=== PATIENT | female | born 1960 | race Caucasian/White ===

== ENCOUNTER 2020-05-23 12:22 | Outpatient (REF) | payer OTHER, SELFPAY ==
[2020-05-23 12:29] LABS: MANUAL DIFF FLAG NO
[2020-05-23 13:02] LABS: Basophils Percent Auto 0.6 % (0-2); Eosinophils Absolute Auto 0.1 X10*3/uL (0.0-0.4); Eosinophils Percent Auto 2.1 % (0-4); Hemoglobin 12.9 g/dl (12.0-16.0); Imm Gran Abs Auto 0.01 X10*3/uL (0.00-0.03); Imm Gran Pct Auto 0.2 % (0.0-0.4); Lymphocytes Absolute Auto 2.3 X10*3/uL (1.2-4.9); Lymphocytes Percent Auto 46.5 % (20-40); Mean Corpuscular HGB Conc 33.9 g/dl (31.0-35.0); Mean Corpuscular Hemoglobin 32.2 pg (27.0-33.0); Mean Corpuscular Volume 94.8 fL (80-98); Mean Platelet Volume 11.6 fL (9.4-12.3); Monocytes Absolute Auto 0.4 X10*3/uL (0.1-1.2); Monocytes Percent Auto 7.8 % (2-11); Neutrophils Absolute Auto 2.1 X10*3/uL (2.0-8.3); Neutrophils Percent Auto 42.8 % (45-73); Platelet Count 230 X10*3/uL (160-400); Red Blood Count 4.01 X10*6/uL (4.20-5.50); White Blood Count 4.9 X10*3/uL (4.8-10.8)
[2020-05-23 13:03] LABS: Glucose Urine UA NEG (NEG); Leukocyte Esterase Urine NEG (NEG); Nitrite Urine NEG (NEG); PH 5.5 (5.0-8.0); Specific Gravity - Urine <= 1.005 (1.005-1.025); Urine Blood NEG (NEG); Urine Ketones NEG (NEG); Urine Protein NEG (NEG-TRACE)
[2020-05-23 13:10] LABS: Appearance Urine CLEAR; Color Urine STRAW
[2020-05-23 13:33] LABS: Alanine Aminotransferase 16 U/L (0-31); Albumin Level 4.4 g/dL (3.5-5.0); Alkaline Phosphatase 43 U/L (39-117); Anion Gap 14 (12-20); Aspartate Amino Transferase 20 U/L (5-31); Bilirubin Total 0.5 mg/dL (0.0-1.0); Blood Urea Nitrogen 16 mg/dL (9-16); Calcium 8.9 mg/dL (8.4-10.2); Carbon Dioxide 27 mmol/L (22-29); Chloride 103 mmol/L (96-108); Cholesterol 227 mg/dL; Estimated Glomerular Filt Rate > 60; Glucose Fasting 84 mg/dL (60-99); HDL Cholesterol 67 mg/dL; LDL Cholesterol Calculated 147 mg/dl; Sodium 140 mmol/L (135-145); Total Protein 6.6 g/dL (6.5-8.0); Triglycerides 65 mg/dL
[2020-05-23 13:54] LABS: Vitamin D 25-OH Total 32.8 ng/mL (>30)
== END 2020-05-23 12:23 | disposition home or self-care (01) ==
LOC: HO.LNP 12:22
PROVIDERS: PCP Internal Medicine; Visit Provider Internal Medicine
DX: Z00.00 Encounter for general adult medical examination without abnormal findings (principal); D72.820 Lymphocytosis (symptomatic); E55.9 Vitamin D deficiency, unspecified
CPT/HCPCS: 80053; 80061; 81003; 82306; 85025

== ENCOUNTER 2020-06-16 17:21 | Emergency (ER) | payer OTHER, SELFPAY ==
--- NOTE | ~2020-06-16 | CT_ITS ---
EXAMINATION: CT HEAD WITHOUT CONTRAST CT CERVICAL SPINE WITHOUT CONTRAST CLINICAL INFORMATION: Dizziness and syncope COMPARISON: None TECHNIQUE: CT of the head and cervical spine were performed without intravenous contrast. Multiplanar reformats were rendered and reviewed. This CT examination was performed using dose optimization techniques as appropriate, variously including the following: *Automated exposure control *Adjustment of mA and/or kV according to patient size (this includes techniques or standardized protocols for targeted exams where dose is matched to indication/reason for exam; i.e. extremities or head) *Use of iterative reconstruction technique DLP: 916 mGy-cm. FINDINGS: CT head: No intracranial hemorrhage, large infarction, or mass lesion is seen. No extra-axial collection is appreciated. The ventricles are normal in size and configuration without evidence of hydrocephalus. The visualized paranasal sinuses and mastoid air cells are clear. No skull fracture. Soft tissues are normal. CT cervical spine: There is mild reversal of the normal lordosis of the cervical spine The craniocervical junction is normal. The vertebral body heights are maintained. No cervical spine fracture is seen. There is moderate intervertebral disc space narrowing at C4-C5 and C5-C6 with endplate osteophyte formation. There are subchondral cysts in the C4 vertebral body. The paraspinal soft tissues are within normal limits. The partially imaged lung apices are clear. CT/CT cervical spine wo con IMPRESSION: CT head: No acute intracranial finding. CT cervical spine: No cervical spine fracture or traumatic malalignment identified. Degenerative changes at C4-C5 and C5-C6.
--- NOTE | ~2020-06-16 | XR_ITS ---
EXAMINATION: XR CHEST CLINICAL INFORMATION: Collapse COMPARISON: None TECHNIQUE: Frontal view of the chest was obtained. FINDINGS: No significant abnormality is noted involving the heart, lungs, mediastinum, bony thorax or soft tissues. XR/XR chest 1V IMPRESSION: Unremarkable examination.
--- NOTE | ~2020-06-16 | CT_ITS ---
EXAMINATION: CT HEAD WITHOUT CONTRAST CT CERVICAL SPINE WITHOUT CONTRAST CLINICAL INFORMATION: Dizziness and syncope COMPARISON: None TECHNIQUE: CT of the head and cervical spine were performed without intravenous contrast. Multiplanar reformats were rendered and reviewed. This CT examination was performed using dose optimization techniques as appropriate, variously including the following: *Automated exposure control *Adjustment of mA and/or kV according to patient size (this includes techniques or standardized protocols for targeted exams where dose is matched to indication/reason for exam; i.e. extremities or head) *Use of iterative reconstruction technique DLP: 916 mGy-cm. FINDINGS: CT head: No intracranial hemorrhage, large infarction, or mass lesion is seen. No extra-axial collection is appreciated. The ventricles are normal in size and configuration without evidence of hydrocephalus. The visualized paranasal sinuses and mastoid air cells are clear. No skull fracture. Soft tissues are normal. CT cervical spine: There is mild reversal of the normal lordosis of the cervical spine The craniocervical junction is normal. The vertebral body heights are maintained. No cervical spine fracture is seen. There is moderate intervertebral disc space narrowing at C4-C5 and C5-C6 with endplate osteophyte formation. There are subchondral cysts in the C4 vertebral body. The paraspinal soft tissues are within normal limits. The partially imaged lung apices are clear. CT/CT head/brain wo con IMPRESSION: CT head: No acute intracranial finding. CT cervical spine: No cervical spine fracture or traumatic malalignment identified. Degenerative changes at C4-C5 and C5-C6.
--- NOTE | 2020-06-16 17:40 | ECG_ITS ---
Test Reason : SYNCOPE Blood Pressure : / mmHG Vent. Rate : 080 BPM Atrial Rate : 080 BPM P-R Int : 150 ms QRS Dur : 086 ms QT Int : 412 ms P-R-T Axes : 061 058 055 degrees QTc Int : 475 ms Sinus rhythm with occasional Premature ventricular complexes Otherwise normal ECG No previous ECGs available Referred By: Trinity Ramon Electronically Signed By:SEJAL AMAYA MD
[2020-06-16 17:42] VITALS: BP 162/79; PULSE 90; RESP 18; TEMP 36.6; O2SAT 99; BMI 22.1
--- NOTE | 2020-06-16 17:42 | ED_ITS ---
HPI - Syncope General Chief Complaint: General Medical Stated Complaint: ?SYNCOPE,ETOH,CONSUMED EDIBLE CANNABIS Time Seen by Provider: 06/16/20 17:37 Source: patient and EMS Mode of arrival: EMS Limitations: no limitations History of Present Illness HPI narrative: 60-year-old female with past medical history of asthma presents via EMS for a syncope versus collapse, stated that she had several alcoholic beverages and marijuana edibles. Patient stated that this is the 2nd time today that she fell, fell while trying carrying wood, and then had a collapse episode approximately 1 hour after eating marijuana edibles. Setting collapse was witnessed by family she was assisted to the ground. Patient states that she drinks often and occasionally uses edibles but has never felt this way before. She describes her symptoms as almost stroke-like, felt like she lost strength to her lower extremities. She does not describe any chest pain or pressure, palpitations, shortness of breath, shortness breath on exertion, headaches, dizziness, lightheadedness, nausea, vomiting, diarrhea, constipation, dysuria, hematuria, fevers, chills, or edema. Related Data Allergies Allergy/AdvReac Type Severity Reaction Status Date / Time No Known Allergies Allergy Verified 06/16/20 17:40 Review of Systems Review of Systems: Constitutional: No Fever, No Chills ENT/Mouth: No sore throat, No Rhinorrhea Eyes: No Eye Pain, No Swelling, No Redness Cardiovascular: No Chest Pain, No SOB Respiratory: No Cough, No Sputum Gastrointestinal: No Nausea, No Vomiting, No Diarrhea, No abdominal Pain Genitourinary: No Dysuria, No Hematuria Musculoskeletal: No joint pain, No Myalgias, No Joint Swelling Skin: No Skin Lesions, No rash Neuro: Positive Weakness, No Numbness, positive Loss of Consciousness, No Dizziness, No Headache Psych: Positive ETOH and marijuana edible use, No Anxiety, No Depression, No SI/HI/AH/VH Heme/Lymph: No Bruising, No Bleeding,No Lymphadenopathy Endocrine: No Polyuria, No Polydipsia Yes all other systems are reviewed and are negative [facility] Past Medical History Attestation statement: The following information was validated with the patient. Source: old records reviewed Medical History Asthma Social History Social History Smoking Status: Current every day smoker Substance Use Type: Marijuana Advance Directives: No Advance Directives Information Provided: Yes Physical Exam Vital Signs: Vital Signs: Last Vital Signs Temp 97.8 F 06/16/20 17:42 Pulse 90 06/16/20 17:42 Resp 16 06/16/20 20:00 BP 162/79 H 06/16/20 17:42 Pulse Ox 99 06/16/20 17:42 Body Mass Index 22.1 Appearance: Alert. Oriented X3. No acute distress. Head: Normal external exam. Normocephalic. Atraumatic. No Chavez signs noted. No raccoon eyes noted Eyes: PERRLA. EOMI. Conjunctiva and sclera normal. Eyelids normal. ENT: TM's Normal. Pharynx normal. Uvula midline. Moist mucous membranes. No trismus noted. No drooling noted. No muffled voice noted. Neck: Normal inspection. Neck supple. No adenopathy. Thyroid Normal. No meningeal signs. No neck mass noted. CVS: Normal heart rate and rhythm. Heart sound normal. No murmurs noted. Pulses equal to all extremities. Respiratory: No respiratory distress. Painless inspiration. Breath sounds normal. No wheezes/rales/rhonchi noted. Chest nontender. No accessory muscle usage noted or decreased air movement noted. Abdomen: Soft and nontender. Bowel sounds normal in all 4 quadrants. No distention noted. No organomegaly noted. No visible injury noted. Back: No CVA tenderness. Full range of motion noted. Skin: Skin warm and dry. Normal skin color. Normal skin turgor. No rashes/lesions/lacerations noted. Extremities: No lower extremity edema. Extremities exhibit normal range of motion. Extremities nontender. Neuro: cranial nerves 2-12 intact, no focal neural deficits, strength 5/5 to all extremities, No motor deficit. No sensory deficit. Reflexes normal. NIH Stroke Scale Internal: Initial- Upon Arrival Time: 17:30 Level of Consciousness: Alert Level of Consciousness Questions: Answers both questions correctly Level of Consciousness Commands: Performs both tasks correctly Best Gaze: Normal Visual: No visual loss Facial Palsy: Normal Motor Arm (Right): No drift Motor Arm (Left): No drift Motor Leg (Right): No drift Motor Leg (Left): No drift Limb Ataxia: Absent Sensory: Normal Best Language: No aphasia Dysarthia: Normal Extinction and Inattention: No abnormality Score: 0 Course Course Course Narrative: 60-year-old female with past medical history of asthma presents via EMS for a syncope versus collapse, stated that she had several alcoholic beverages and marijuana edibles. Even though patient has had marijuana edibles and multiple alcoholic beverages, Based on patient's multiple falls today and inability to accurately recall events, we will rule out CVA, order CT scan of head, cervical spine, rule out ACS with EKG, troponin, will order the , urinalysis, CBC, Chem 7, and ethanol. At 6:09 p.m. chest x-ray is negative for acute findings requiring emergent intervention. At 6:[address] scan head and cervical spine negative for acute findings r equiring emergent intervention. Does show degenerative disc changes to the cervical spine with some cysts. Labs still pending draw, EKG pending. 9:00 p.m. labs are unremarkable, troponin is negative, urine and EKG still pending. 9:12 p.m. EKG is normal sinus with PVCs. Patient does not want to give urine sample, based on lab values and presentation I do not feel that she is high risk for UTI at this time. I do feel like her condition is consistent with ETOH and marijuana use. Plan of care is to discharge home. Patient verbalized understanding of and agrees to plan of care. MDM - Syncope Differential Diagnosis Differential diagnosis: Likely syncope due to orthostatic hypotension, vasovagal syncope, subarachnoid hemorrhage and dehydration Medical Records Attestation: I reviewed the patient's medical records. Lab Data Attestation: I reviewed the patient's lab results. Result diagrams: 06/16/20 20:08 06/16/20 20:08 Labs: Lab Results 06/16/20 06/16/20 06/16/20 Range/Units 20:08 20:08 20:08 WBC 9.8 (4.8-10.8) X10*3/uL RBC 4.05 L (4.20-5.50) X10*6/uL Hgb 12.7 (12.0-16.0) g/dl Hct 37.4 (37-47) % MCV 92.3 (80-98) fL MCH 31.4 (27.0-33.0) pg MCHC 34.0 (31.0-35.0) g/dl RDW 11.7 (11.0-16.0) % Plt Count 243 (160-400) X10*3/uL MPV 10.7 (9.4-12.3) fL Immature Gran % (Auto) 0.1 (0.0-0.4) % Neut % (Auto) 81.6 H (45-73) % Lymph % (Auto) 14.4 L (20-40) % [place] % (Auto) 3.4 (2-11) % Eos % (Auto) 0.2 (0-4) % Baso % (Auto) 0.3 (0-2) % Lymph # (Auto) 1.4 (1.2-4.9) X10*3/uL [place] # (Auto) 0.3 (0.1-1.2) X10*3/uL Eos # (Auto) 0.0 (0.0-0.4) X10*3/uL Baso # (Auto) 0.0 (0.0-0.2) X10*3/uL Abs Immat Gran (auto) 0.01 (0.00-0.03) X10*3/uL Absolute Neuts (auto) 8.0 (2.0-8.3) X10*3/uL Absolute Nucleated RBC 0.000 (0.0-0.012) X10*3/uL Nucleated RBC % (auto) 0.0 (0.0-0.2) /100WBC PT (10.8-13.0) SEC INR (0.9-1.1) APTT (24.1-38.0) SEC Sodium 136 (135-145) mmol/L Potassium 4.3 (3.3-5.1) mmol/L Chloride 101 (96-108) mmol/L Carbon Dioxide 26 (22-29) mmol/L Anion Gap 13 (12-20) BUN 15 (9-16) mg/dL Creatinine 0.87 (0.5-1.4) mg/dL Estim Creat Clear Calc 56.9 Estimated GFR > 60 Random Glucose 105 (60-115) mg/dL Calcium 9.2 (8.4-10.2) mg/dL Magnesium 2.1 (1.6-2.6) mg/dL Troponin I High Sens < 3.5 (<3.5-17.0) ng/L Ethyl Alcohol mg/dL 06/16/20 06/16/20 Range/Units 20:08 20:08 WBC (4.8-10.8) X10*3/uL RBC (4.20-5.50) X10*6/uL Hgb (12.0-16.0) g/dl Hct (37-47) % MCV (80-98) fL MCH (27.0-33.0) pg MCHC (31.0-35.0) g/dl RDW (11.0-16.0) % Plt Count (160-400) X10*3/uL MPV (9.4-12.3) fL Immature Gran % (Auto) (0.0-0.4) % Neut % (Auto) (45-73) % Lymph % (Auto) (20-40) % [place] % (Auto) (2-11) % Eos % (Auto) (0-4) % Baso % (Auto) (0-2) % Lymph # (Auto) (1.2-4.9) X10*3/uL [place] # (Auto) (0.1-1.2) X10*3/uL Eos # (Auto) (0.0-0.4) X10*3/uL Baso # (Auto) (0.0-0.2) X10*3/uL Abs Immat Gran (auto) (0.00-0.03) X10*3/uL Absolute Neuts (auto) (2.0-8.3) X10*3/uL Absolute Nucleated RBC (0.0-0.012) X10*3/uL Nucleated RBC % (auto) (0.0-0.2) /100WBC PT 11.9 (10.8-13.0) SEC INR 1.0 (0.9-1.1) APTT 37.8 (24.1-38.0) SEC Sodium (135-145) mmol/L Potassium (3.3-5.1) mmol/L Chloride (96-108) mmol/L Carbon Dioxide (22-29) mmol/L Anion Gap (12-20) BUN (9-16) mg/dL Creatinine (0.5-1.4) mg/dL Estim Creat Clear Calc Estimated GFR Random Glucose (60-115) mg/dL Calcium (8.4-10.2) mg/dL Magnesium (1.6-2.6) mg/dL Troponin I High Sens (<3.5-17.0) ng/L Ethyl Alcohol < 10 mg/dL Imaging Data Chest x-ray: Attestation: I personally reviewed and interpreted this imaging study as follows: Radiologist's impression: EXAMINATION: XR CHEST CLINICAL INFORMATION: Collapse COMPARISON: None TECHNIQUE: Frontal view of the chest was obtained. FINDINGS: No significant abnormality is noted involving the heart, lungs, mediastinum, bony thorax or soft tissues. XR/XR chest 1V IMPRESSION: Unremarkable examination. CT head and cervical spine: Attestation: I personally reviewed and interpreted this imaging study as follows: Radiologist's impression: EXAMINATION: CT HEAD WITHOUT CONTRAST CT CERVICAL SPINE WITHOUT CONTRAST CLINICAL INFORMATION: Dizziness and syncope COMPARISON: None TECHNIQUE: CT of the head and cervical spine were performed without intravenous contrast. Multiplanar reformats were rendered and reviewed. This CT examination was performed using dose optimization techniques as appropriate, variously including the following: *Automated exposure control *Adjustment of mA and/or kV according to patient size (this includes techniques or standardized protocols for targeted exams where dose is matched to indication/reason for exam; i.e. extremities or head) *Use of iterative reconstruction technique DLP: 916 mGy-cm. FINDINGS: CT head: No intracranial hemorrhage, large infarction, or mass lesion is seen. No extra-axial collection is appreciated. The ventricles are normal in size and configuration without evidence of hydrocephalus. The visualized paranasal sinuses and mastoid air cells are clear. No skull fracture. Soft tissues are normal. CT cervical spine: There is mild reversal of the normal lordosis of the cervical spine The craniocervical junction is normal. The vertebral body heights are maintained. No cervical spine fracture is seen. There is moderate intervertebral disc space narrowing at C4-C5 and C5-C6 with endplate osteophyte formation. There are subchondral cysts in the C4 vertebral body. The paraspinal soft tissues are within normal limits. The partially imaged lung apices are clear. CT/CT cervical spine wo con IMPRESSION: CT head: No acute intracranial finding. CT cervical spine: No cervical spine fracture or traumatic malalignment identified. Degenerative changes at C4-C5 and C5-C6. ECG Data Attestation: I personally reviewed and interpreted this ECG as follows: ECG interpretation date: 06/16/20 ECG interpretation time: 21:12 Interpretation: Vent. rate 80 BPM MD interval 150 ms QRS duration 86 ms QT/QTc 412/475 ms P-R-T axes 61 58 55 Sinus rhythm with occasional Premature ventricular complexes Otherwise normal ECG No previous ECGs available Discharge Plan Discharge Clinical Impression: Near syncope Marijuana intoxication Qualifiers: Complication of substance-induced condition: uncomplicated Qualified Code(s): F12.920 - Cannabis use, unspecified with intoxication, uncomplicated Patient Disposition: Home, Self-Care Instructions: Near Syncope (ED) Additional Instructions: You were evaluated for near syncopal episode after eating marijuana edibles and drinking alcohol. Your CT scan of the head and cervical spine are negative for acute findings. Your chest x-ray is negative. Your lab values are within normal limits. Your EKG is normal sinus rhythm and troponins are 0. Highly unlikely that this is an ACS or stroke. This could possibly be due to alcohol and marijuana use. Please follow-up with primary care physician in the next week. Thank you for choosing this emergency department for evaluation. Please follow-up with primary care physician as needed. Return to the emergency department for any new, concerning, or worsening symptoms.
[2020-06-16 20:00] VITALS: RESP 16
[2020-06-16 20:15] LABS: MANUAL DIFF FLAG NO
[2020-06-16 20:16] LABS: Basophils Percent Auto 0.3 % (0-2); Eosinophils Percent Auto 0.2 % (0-4); Hematocrit 37.4 % (37-47); Hemoglobin 12.7 g/dl (12.0-16.0); Imm Gran Abs Auto 0.01 X10*3/uL (0.00-0.03); Imm Gran Pct Auto 0.1 % (0.0-0.4); Lymphocytes Absolute Auto 1.4 X10*3/uL (1.2-4.9); Lymphocytes Percent Auto 14.4 % (20-40); Mean Corpuscular Hemoglobin 31.4 pg (27.0-33.0); Mean Corpuscular Volume 92.3 fL (80-98); Mean Platelet Volume 10.7 fL (9.4-12.3); Monocytes Absolute Auto 0.3 X10*3/uL (0.1-1.2); Monocytes Percent Auto 3.4 % (2-11); Neutrophils Percent Auto 81.6 % (45-73); Platelet Count 243 X10*3/uL (160-400); Red Blood Count 4.05 X10*6/uL (4.20-5.50); Red Cell Distribution Width 11.7 % (11.0-16.0); White Blood Count 9.8 X10*3/uL (4.8-10.8)
[2020-06-16 20:22] LABS: Prothrombin Time 11.9 SEC (10.8-13.0)
[2020-06-16 20:24] LABS: Partial Thromboplastin Time 37.8 SEC (24.1-38.0)
[2020-06-16 20:57] LABS: Ethanol < 10 mg/dL
[2020-06-16 20:59] LABS: Anion Gap 13 (12-20); Blood Urea Nitrogen 15 mg/dL (9-16); Calcium 9.2 mg/dL (8.4-10.2); Carbon Dioxide 26 mmol/L (22-29); Chloride 101 mmol/L (96-108); Creatinine Clr Calc Pharmacy 56.9; Estimated Glomerular Filt Rate > 60; Glucose Random 105 mg/dL (60-115); Magnesium 2.1 mg/dL (1.6-2.6); Potassium 4.3 mmol/L (3.3-5.1); Sodium 136 mmol/L (135-145)
[2020-06-16 21:05] LABS: Troponin-I High Sensitivity < 3.5 ng/L (<3.5-17.0)
[2020-06-16 23:14] VITALS: BP 160/65; PULSE 87; RESP 18; TEMP 36.1; O2SAT 97
== END 2020-06-16 23:11 | disposition home or self-care (01) ==
PROVIDERS: Nurse Practitioner Family; Emergency Provider Internal Medicine; PCP Internal Medicine
DX: R55 Syncope and collapse (principal); F12.920 Cannabis use, unspecified with intoxication, uncomplicated; J45.909 Unspecified asthma, uncomplicated; F17.200 Nicotine dependence, unspecified, uncomplicated
CPT/HCPCS: 36415; 70450; 71045; 72125; 80048; 80320; 83735; 84484; 85025; 85610; 85730; 93005; 99284

== ENCOUNTER 2021-04-10 13:54 | Outpatient (REF) | payer OTHER, SELFPAY ==
[2021-04-10 13:58] LABS: MANUAL DIFF FLAG NO
[2021-04-10 14:05] LABS: Appearance Urine CLEAR; Color Urine STRAW; Glucose Urine UA NEG (NEG); Leukocyte Esterase Urine NEG (NEG); Nitrite Urine NEG (NEG); PH 5.5 (5.0-8.0); Specific Gravity - Urine <= 1.005 (1.005-1.025); Urine Blood NEG (NEG); Urine Ketones NEG (NEG); Urine Protein NEG (NEG-TRACE)
[2021-04-10 14:06] LABS: Basophils Percent Auto 0.6 % (0-2); Eosinophils Absolute Auto 0.1 X10*3/uL (0.0-0.4); Eosinophils Percent Auto 0.8 % (0-4); Hematocrit 38.4 % (37.0-47.0); Hemoglobin 12.8 g/dl (12.0-16.0); Imm Gran Abs Auto 0.01 X10*3/uL (0.00-0.03); Imm Gran Pct Auto 0.2 % (0.0-0.4); Lymphocytes Absolute Auto 2.3 X10*3/uL (1.2-4.9); Lymphocytes Percent Auto 37.5 % (20-40); Mean Corpuscular HGB Conc 33.3 g/dl (31.0-35.0); Mean Corpuscular Hemoglobin 31.2 pg (27.0-33.0); Mean Corpuscular Volume 93.7 fL (80.0-98.0); Mean Platelet Volume 11.5 fL (9.4-12.3); Monocytes Absolute Auto 0.4 X10*3/uL (0.1-1.2); Neutrophils Absolute Auto 3.3 x10*3/uL (2.0-8.3); Neutrophils Percent Auto 53.9 % (45-73); Platelet Count 240 X10*3/uL (160-400); White Blood Count 6.2 X10*3/uL (4.8-10.8)
[2021-04-10 14:14] LABS: Alanine Aminotransferase 16 U/L (0-31); Albumin Level 4.6 g/dL (3.5-5.0); Alkaline Phosphatase 51 U/L (39-117); Anion Gap 13 (12-20); Aspartate Amino Transferase 19 U/L (5-31); Bilirubin Total 0.6 mg/dL (0.0-1.0); Blood Urea Nitrogen 18 mg/dL (9-16); Calcium 10.1 mg/dL (8.4-10.2); Carbon Dioxide 28 mmol/L (22-29); Chloride 105 mmol/L (96-108); Cholesterol 261 mg/dL; Estimated Glomerular Filt Rate > 60; Glucose Fasting 66 mg/dL (60-99); HDL Cholesterol 82 mg/dL; LDL Cholesterol Calculated 162 mg/dl; Potassium 4.6 mmol/L (3.3-5.1); Sodium 141 mmol/L (135-145); Total Protein 7.3 g/dL (6.5-8.0); Triglycerides 87 mg/dL
[2021-04-10 14:33] LABS: Vitamin D 25-OH Total 32.2 ng/mL (>30)
== END 2021-04-10 13:55 | disposition home or self-care (01) ==
LOC: HO.LNP 13:54
PROVIDERS: Visit Provider Internal Medicine
DX: Z00.00 Encounter for general adult medical examination without abnormal findings (principal); R22.9 Localized swelling, mass and lump, unspecified; R09.89 Other specified symptoms and signs involving the circulatory and respiratory systems; E55.9 Vitamin D deficiency, unspecified; D72.820 Lymphocytosis (symptomatic)
CPT/HCPCS: 80053; 80061; 81003; 82306; 85025

== ENCOUNTER → 2021-07-30 14:19 | Outpatient (BNVA) | payer OTHER, SELFPAY | PROVIDERS: PCP Internal Medicine; Referring Provider Internal Medicine; Visit Provider Internal Medicine | DX: I35.1 Nonrheumatic aortic (valve) insufficiency (principal) | CPT/HCPCS: 93005 ==

== ENCOUNTER → 2021-09-10 08:00 | Outpatient (REF) | payer OTHER, SELFPAY ==
--- NOTE | 2021-09-10 08:03 | CA_ITS ---
Transthoracic Echocardiogram Patient (Last, First, Middle): Carla Wayne S Gender: Female Date of : 1960 Age: 61 Procedure Date: 09/10/2021 Procedure Type: Transthoracic Echocardiogram Location: OP Height: 160.02 cm Weight: 56.7 kg BSA: 1.58 m2 Heart Rate: bpm BP: 108 / 56 mmHg Environmental Field Office Manager: SB Referring MD: Steven Marquis MD Symptoms: I35.1 - Nonrheumatic aortic (valve) insufficiency Study Quality: Good ECG Rhythm: Sinus Conclusions: - The left ventricular systolic function is normal. The calculated ejection fraction is 67% by biplane method. - There is mild aortic valve regurgitation. - There is mild dilatation of the ascending aorta measuring 3.90 cm. Findings Left Ventricle Normal left ventricular cavity size. There is normal left ventricular wall thickness. The left ventricular systolic function is normal. The calculated ejection fraction is 67% by biplane method. There is no evidence of regional wall motion abnormalities. Diastolic function is normal for age. LV peak GLS -24.5%. Right Ventricle Normal right ventricular cavity size and systolic function. Atria Both atria are normal in size. Aortic Valve There is a normal trileaflet aortic valve. There is mild calcification of the aortic valve. There is no aortic valve stenosis. There is mild aortic valve regurgitation. Mitral Valve The mitral valve appears normal. There is no mitral valve regurgitation. There is no mitral valve stenosis. Pulmonic Valve The pulmonic valve is likely normal. Tricuspid Valve Normal tricuspid valve structure. There is mild tricuspid valve regurgitation. The pulmonary artery systolic pressure is normal. Great Vessels The aortic arch is normal in size. There is mild dilatation of the ascending aorta measuring 3.90 cm. Venous The inferior vena cava is normal in size and collapses greater than 50% with inspiration. Pericardium/Pleural There is no evidence of pericardial effusion. Prior Study Comparison Changes noted compared to prior study dated: 04/11/2014. Slight increase in ascending aortic size. Measurements 2D Linear Measurements IVSd: 0.70 0.6-0.9/0.6-1.0 cm LVIDd: 3.87 3.9-5.3/4.2-5.9 cm LVIDd Index: 2.45 2.4-3.2/2.2-3.1 cm/m2 LVIDs: 2.41 2.0-3.6 cm LVPWd: 0.73 0.7-1.1 cm LA Diam: 3.00 2.7-3.8/3.0-4.0 cm LAIDs Index: 1.90 1.5-2.3 cm/m2 LV Mass: 93.94 67-162/88-224 g LV Mass Index: 59.46 43-95/49-115 g/m2 LVOT Diam: 2.00 3.0+(-)1.3 cm 2D Systolic Function EF 4C: 66.60 >55% EF 2C: 66.30 >55% EF BiP: 66.50 >55% Mitral Valve MV Pk E: 0.78 MV PK A: 0.65 MV Decel Time: 155.00 E/A: 1.20 E'Lateral: 7.29 E'Medial: 7.72 E/E' Med: 10.10 E/E' Lat: 10.60 PHT: 45.00 MVA PHT: 4.89 Decel Ray: 5.01 Aortic Valve AoV Pk Aj: 2.12 AoV Mn Aj: 1.48 AoV VTI: 0.49 AoV Pk Grad: 18.00 Aov Mn Grad: 10.00 ZANDRA Cont.VTI: 1.77 AI Pk Aj: 4.61 AI Ray: 1.56 LVOT LVOT Pk Aj: 1.23 LVOT Mn Aj: 0.82 LVOT VTI: 0.28 LVOT Pk Grad: 6.00 LVOT Mn Grad: 3.00 LVOT Diam: 2.00 LVOT Area: 3.14 Diastolic Function MV Pk E: 0.78 MV Pk A: 0.65 E/A: 1.20 E'Medial: 7.72 E/E' Med: 10.10 E' Laterial: 7.29 E/E' Lat: 10.60 Right Ventricle TAPSE (mm): 30.40 TVS' Aj: 12.30 Tricuspid Valve TR Pk Aj: 2.35 TR Pk Grad: 22.00 Great Vessels Aorta Sinus of Valsalva: 2.85 2.0-3.[address] Ridge: 2.55 1.7-3.4 cm Ao Asc: 3.90 2.1-3.4 cm Ao Arch: 3.30 Ao Desc: 2.10 Pulmonary Veins Pulm Vein S/D 1.70 Pulmonary Valve PV Pk Aj: 0.84 Peak PV Grad: 3.00 Updated in Other Vendor System with Status of Final Steven Marquis MD electronically signed on 09/12/2021 3:49:18 PM with status of Final
== END ==
LOC: HO.CARD 08:00
PROVIDERS: PCP Internal Medicine; Visit Provider Internal Medicine
DX: I35.1 Nonrheumatic aortic (valve) insufficiency (principal)
CPT/HCPCS: 93306; 93356

== ENCOUNTER 2021-09-12 07:43 | Day surgery (SDC) | payer OTHER, SELFPAY ==
[2021-09-08 16:02] VITALS: BMI 22.1
--- NOTE | 2021-09-11 11:38 | HO.ANESPROP2 ---
Documented by User: Clara Cuellar NP 09/11/21 11:40 HPI - Anesthesia Eval Consult details Narrative: 61yo F for Colonoscopy PMFSH Active Problems Active Problems: All Active Problems (Updated 07/30/21 @ 14:32 by Steven Marquis MD) Non-rheumatic aortic regurgitation (Acute) Past Medical History Medical History Asthma Family History Family History (Updated 07/30/21 @ 14:26 by EDIN Saleh) Other Hypertension Stroke Surgical History Surgical History (Updated 09/12/21 @ 08:12 by Cookie Kelly RN) History of cholecystectomy Hx of colonoscopy No pertinent past surgical history Social History Social History (Updated 07/30/21 @ 14:25 by EDIN Saleh) Patient Tobacco Use Status: Former Tobacco user Smoked in Last 30 Days: No Use of substances other than those prescribed or required for medical reasons: No Substance Use Type: Marijuana Are you DNR?: No Advance Directives: No Advance Directives Information Provided: Yes Recently lost weight without trying: No Eating poorly because of decreased appetite: No Nutrition Risks: No Nutritional Risk Meds Allergies Allergy/AdvReac Type Severity Reaction Status Date / Time ketorolac [From Toradol] AdvReac Unknown Unknown Verified 09/12/21 08:24 promethazine [From Phenergan] AdvReac Unknown unk Verified 09/12/21 08:24 Home Medications Medication Instructions Recorded Confirmed Last Taken Type No Known Home Meds 07/30/21 07/30/21 Unknown History Exam Exam Date and Time: September 11, 2021 1138 Height,Weight and Vital Signs: Height 5 ft 3.75 in Weight 58.06 kg Pertinent Lab Results Pertinent Lab Results: Laboratory Tests 04/10/21 04/10/21 08:00 08:00 WBC 6.2 Hgb 12.8 Hct 38.4 Plt Count 240 Sodium 141 Potassium 4.6 Chloride 105 Carbon Dioxide 28 BUN 18 H Creatinine 0.84 Narrative Narrative: EKG 07/2021 sinus rhythm at 60/Min; no significant ST-T changes and otherwise unremarkable.? Normal IL/QTc. Assessment and Plan Assessment Anesthesia Assessment: Chart Reviewed Documented by User: Jermaine Orr MD 09/12/21 13:08 [facility] Past Medical History Medical History Asthma Functional capacity: independent ambulation Family History Family History (Updated 07/30/21 @ 14:26 by EDIN Saleh) Other Hypertension Stroke Family history of problems with anesthesia: No Surgical History Surgical History (Updated 09/12/21 @ 08:12 by Cookie Kelly RN) History of cholecystectomy Hx of colonoscopy No pertinent past surgical history History of Problems with Anesthesia: No Social History Social History (Updated 07/30/21 @ 14:25 by EDIN Saleh) Patient Tobacco Use Status: Former Tobacco user Smoked in Last 30 Days: No Use of substances other than those prescribed or required for medical reasons: No Substance Use Type: Marijuana Are you DNR?: No Advance Directives: No Advance Directives Information Provided: Yes Recently lost weight without trying: No Eating poorly because of decreased appetite: No Nutrition Risks: No Nutritional Risk Meds Allergies Allergy/AdvReac Type Severity Reaction Status Date / Time ketorolac [From Toradol] AdvReac Unknown Unknown Verified 09/12/21 08:24 promethazine [From Phenergan] AdvReac Unknown unk Verified 09/12/21 08:24 Home Medications Medication Instructions Recorded Confirmed Last Taken Type No Known Home Meds 07/30/21 07/30/21 Unknown History Exam Airway Mallampati Class: III TM Dist: >3cm Neck ROM: Full Loose/Missing/Broken Teeth: Yes Heart: S1,S2 Lungs: b/l breath sounds Assessment and Plan Assessment Anesthesia Assessment: Anesthesia Plan Discussed Final Anesthetic Review Family History of Problems with Anesthesia: No History of Problems with Anesthesia: No NPO: Yes ASA Class: II Final Preanesthetic Review: Meds/Allgs Chart Reviewed, Consent Obtained/Reviewed and Anes Risks/Benef Reviewed Patient Risk: High Procedure Risk: Intermediate Anesthetic Plan Anesthetic Plan: MAC: Disposition: Standard PACU
[2021-09-12 08:05] VITALS: BP 131/75; PULSE 51; RESP 18; TEMP 36.5; O2SAT 100; BMI 21.6
[2021-09-12] MEDS: Lactated Ringers 1,000 ML 100 ML IVCONT (08:23)
--- NOTE | 2021-09-12 10:48 | P.BOP_ITS ---
Brief Operative Note Date of Service: 09/12/21 Pre-op diagnosis: Screening Post-op diagnosis: other (Diverticulosis) Procedure: Colonoscopy to the cecum and TI Surgeon: Ovidio Eller Anesthesia: MAC Was an Clinical Cytogenetics Director used for this Procedure?: No Estimated blood loss (mL): 0 Pathology: none sent Condition: stable Disposition: PACU
[2021-09-12 10:51] VITALS: BP 92/48; PULSE 65; RESP 17; TEMP 36.3; O2SAT 98
[2021-09-12 11:06] VITALS: BP 121/71; PULSE 64; RESP 16; O2SAT 100
[2021-09-12 11:21] VITALS: BP 111/75; PULSE 51; RESP 16; TEMP 36.3; O2SAT 98
[2021-09-12] MEDS: Acetaminophen Oral Liquid 650 MG/20.3 ML SOLUTION PO (12:29)
--- NOTE | 2021-09-12 21:05 | OP_ITS ---
SURGEON: Ovidio Eller MD INDICATIONS: The patient presents for evaluation of colorectal cancer screening. Full consent has been obtained from her for this, including risks of bleeding and perforation. PREOPERATIVE DIAGNOSIS: Colorectal cancer screening. POSTOPERATIVE DIAGNOSIS: PROCEDURE PERFORMED: Colonoscopy to the cecum and terminal ileum. ESTIMATED BLOOD LOSS: COMPLICATIONS: ANESTHESIA: Medication used; monitored anesthesia care. ASSISTANTS: SPECIMENS: POSTOPERATIVE DIAGNOSES: 1. Colorectal cancer screening. 2. Mild sigmoid diverticulosis and internal hemorrhoids. DESCRIPTION OF PROCEDURE: The patient was placed in the left lateral decubitus position. The digital rectal exam revealed no abnormalities. The Olympus video pediatric colonoscope was entered into the rectum advanced easily to the cecum. Once in the cecum, I did identify normal-appearing cecal pouch with appendiceal orifice and a normal-appearing ileocecal valve. The terminal ileum was cannulated and appeared normal. The scope was withdrawn back in the colon. The entire cecum and ileocecal valve appeared normal. The scope was slowly withdrawn assessing all mucosal surfaces carefully. Preparation was excellent. I did not visualize any sign of polyps, colitis, or angiodysplasia. There was a mild amount of sigmoid diverticulosis. In the rectum, scope was retroflexed visualizing internal hemorrhoids, but no other pathology. The rectal mucosa appeared normal. The scope was straightened out and withdrawn from the patient. She tolerated the procedure well and was returned to recovery area in stable condition. IMPRESSION: 1. Sigmoid diverticulosis. 2. Internal hemorrhoids. PLAN: Given the negative exam, I would recommend a followup colonoscopy in 10 years for further screening. She will otherwise see me on a p.r.n. basis. MD RAHEL Foy/LEXII / [phone]
== END 2021-09-12 13:25 | disposition home or self-care (01) ==
PROVIDERS: PCP Internal Medicine; Visit Provider Internal Medicine
PROC: 0DJD8ZZ Inspection of Lower Intestinal Tract, Via Natural or Artificial Opening Endoscopic (ICD-10-PCS; CPT 45378; principal; 2021-09-12 09:10)
DX: Z12.11 Encounter for screening for malignant neoplasm of colon (principal); K57.30 Diverticulosis of large intestine without perforation or abscess without bleeding; K64.8 Other hemorrhoids; J45.909 Unspecified asthma, uncomplicated; Z79.899 Other long term (current) drug therapy; Z90.49 Acquired absence of other specified parts of digestive tract
CPT/HCPCS: 45378; J2250

== ENCOUNTER 2022-03-31 14:30 | Outpatient (REF) | payer OTHER, SELFPAY ==
--- NOTE | ~2022-03-31 | XR_ITS ---
EXAMINATION: XR CHEST CLINICAL INFORMATION: Cough COMPARISON: Chest radiographs 06/16/2020 TECHNIQUE: 2 frontal views and a lateral projection of the chest are obtained for 3 views. FINDINGS: The lungs are clear. The vascularity is normal. There is no airspace consolidation or groundglass opacity or effusion. The heart is normal in size. The hilar and mediastinal contours are normal. No acute bony abnormality. XR/XR chest 2V IMPRESSION: Unremarkable examination.
== END 2022-03-31 14:31 | disposition home or self-care (01) ==
LOC: HO.XRAY 14:30
PROVIDERS: PCP Internal Medicine; Visit Provider Internal Medicine
DX: R05.9 Cough, unspecified (principal)
CPT/HCPCS: 71046

== ENCOUNTER 2022-07-07 11:18 | Outpatient (REF) | payer OTHER, SELFPAY ==
[2022-07-07 11:21] LABS: MANUAL DIFF FLAG NO
[2022-07-07 12:05] LABS: Basophils Absolute Auto 0.1 X10*3/uL (0.0-0.2); Eosinophils Absolute Auto 0.1 X10*3/uL (0.0-0.4); Eosinophils Percent Auto 1.4 % (0-4); Hemoglobin 12.9 g/dl (12.0-16.0); Imm Gran Abs Auto 0.02 X10*3/uL (0.00-0.03); Imm Gran Pct Auto 0.3 % (0.0-0.4); Lymphocytes Absolute Auto 2.6 X10*3/uL (1.2-4.9); Lymphocytes Percent Auto 36.9 % (20-40); Mean Corpuscular HGB Conc 33.1 g/dl (31.0-35.0); Mean Corpuscular Volume 93.8 fL (80.0-98.0); Mean Platelet Volume 11.3 fL (9.4-12.3); Monocytes Absolute Auto 0.6 X10*3/uL (0.1-1.2); Neutrophils Absolute Auto 3.7 x10*3/uL (2.0-8.3); Neutrophils Percent Auto 52.4 % (45-73); Platelet Count 237 X10*3/uL (160-400); Red Blood Count 4.16 X10*6/uL (4.20-5.50); Red Cell Distribution Width 12.4 % (11.0-16.0)
[2022-07-07 12:20] LABS: Appearance Urine Clear; Color Urine Yellow; Glucose Urine UA Negative (Negative); Leukocyte Esterase Urine Negative (Negative); Nitrite Urine Negative (Negative); PH 6.5 (5.0-9.0); Specific Gravity - Urine 1.015 (1.005-1.025); Urine Blood Negative (Negative); Urine Ketones Negative (Negative); Urine Protein Negative (Neg-Trace)
[2022-07-07 12:24] LABS: Bacteria Urine None Seen (None Seen); Hyaline Casts Urine 0-2 /LPF (0-2); RBC Urine 0-2 /HPF (0-2); Squamous Epithelial Cell Urine 0-2 /HPF (0-2); WBC Urine 0-5 /HPF (0-5)
[2022-07-07 12:26] LABS: Alanine Aminotransferase 16 U/L (0-31); Albumin Level 4.6 g/dL (3.5-5.0); Alkaline Phosphatase 55 U/L (39-117); Anion Gap 12 (12-20); Aspartate Amino Transferase 19 U/L (5-31); Bilirubin Total 0.9 mg/dL (0.0-1.0); Blood Urea Nitrogen 17 mg/dL (9-16); Calcium 9.6 mg/dL (8.4-10.2); Carbon Dioxide 28 mmol/L (22-29); Chloride 104 mmol/L (96-108); Cholesterol 236 mg/dL; Estimated Glomerular Filt Rate > 60; Glucose Fasting 91 mg/dL (60-99); HDL Cholesterol 79 mg/dL; LDL Cholesterol Calculated 138 mg/dl; Potassium 4.4 mmol/L (3.3-5.1); Sodium 140 mmol/L (135-145); Total Protein 6.9 g/dL (6.5-8.0); Triglycerides 99 mg/dL
[2022-07-07 12:42] LABS: Vitamin D 25-OH Total 17.4 ng/mL (>30)
== END 2022-07-07 11:19 | disposition home or self-care (01) ==
LOC: HO.LNP 11:18
PROVIDERS: Visit Provider Internal Medicine
DX: Z00.00 Encounter for general adult medical examination without abnormal findings (principal); E55.9 Vitamin D deficiency, unspecified; D72.820 Lymphocytosis (symptomatic)
CPT/HCPCS: 80053; 80061; 81001; 82306; 85025

== ENCOUNTER 2023-07-13 11:16 | Outpatient (REF) | payer OTHER, SELFPAY ==
[2023-07-13 11:23] LABS: MANUAL DIFF FLAG NO
[2023-07-13 12:06] LABS: Basophils Percent Auto 0.5 % (0-2); Eosinophils Absolute Auto 0.1 X10*3/uL (0.0-0.4); Eosinophils Percent Auto 1.6 % (0-4); Hematocrit 36.3 % (37.0-47.0); Hemoglobin 12.3 g/dl (12.0-16.0); Imm Gran Abs Auto 0.01 X10*3/uL (0.00-0.03); Imm Gran Pct Auto 0.2 % (0.0-0.4); Lymphocytes Absolute Auto 2.5 X10*3/uL (1.2-4.9); Lymphocytes Percent Auto 46.1 % (20-40); Mean Corpuscular HGB Conc 33.9 g/dl (31.0-35.0); Mean Corpuscular Hemoglobin 31.5 pg (27.0-33.0); Mean Corpuscular Volume 92.8 fL (80.0-98.0); Mean Platelet Volume 11.3 fL (9.4-12.3); Monocytes Absolute Auto 0.4 X10*3/uL (0.1-1.2); Monocytes Percent Auto 7.6 % (2-11); Neutrophils Absolute Auto 2.4 x10*3/uL (2.0-8.3); Platelet Count 222 X10*3/uL (160-400); Red Blood Count 3.91 X10*6/uL (4.20-5.50); Red Cell Distribution Width 12.2 % (11.0-16.0); White Blood Count 5.5 X10*3/uL (4.8-10.8)
[2023-07-13 12:08] LABS: Appearance Urine Clear; Color Urine Yellow; Glucose Urine UA Negative (Negative); Leukocyte Esterase Urine Negative (Negative); Nitrite Urine Negative (Negative); PH 7.5 (5.0-9.0); Urine Blood Negative (Negative); Urine Ketones Negative (Negative); Urine Protein Negative (Neg-Trace)
[2023-07-13 12:12] LABS: Bacteria Urine None Seen (None Seen); Hyaline Casts Urine 0-2 /LPF (0-2); RBC Urine 0-2 /HPF (0-2); Squamous Epithelial Cell Urine 0-2 /HPF (0-2); WBC Urine 0-5 /HPF (0-5)
[2023-07-13 12:41] LABS: Alanine Aminotransferase 15 U/L (0-31); Albumin Level 4.3 g/dL (3.5-5.0); Alkaline Phosphatase 46 U/L (39-117); Anion Gap 13 (12-20); Aspartate Amino Transferase 22 U/L (5-31); Bilirubin Total 0.6 mg/dL (0.0-1.0); Blood Urea Nitrogen 14 mg/dL (9-16); Calcium 9.1 mg/dL (8.4-10.2); Carbon Dioxide 27 mmol/L (22-29); Chloride 105 mmol/L (96-108); Cholesterol 208 mg/dL (<200); Estimated Glomerular Filt Rate > 60; Glucose Fasting 88 mg/dL (60-99); HDL Cholesterol 71 mg/dL (>40); LDL Cholesterol Calculated 122 mg/dL (<100); Potassium 3.9 mmol/L (3.3-5.1); Sodium 141 mmol/L (135-145); Total Protein 6.7 g/dL (6.5-8.0); Triglycerides 76 mg/dL (<150)
[2023-07-13 12:43] LABS: Vitamin D 25-OH Total 33.8 ng/mL (>30)
== END 2023-07-13 11:17 | disposition home or self-care (01) ==
LOC: HO.LNP 11:16
PROVIDERS: Visit Provider Internal Medicine
DX: E55.9 Vitamin D deficiency, unspecified (principal); D72.820 Lymphocytosis (symptomatic); Z00.00 Encounter for general adult medical examination without abnormal findings
CPT/HCPCS: 80053; 80061; 81001; 82306; 85025

== ENCOUNTER 2023-07-20 12:38 | Outpatient (REF) | payer OTHER, SELFPAY | END 2023-07-20 12:39 | disposition home or self-care (01) | LOC: HO.LNP 12:38 | PROVIDERS: Visit Provider Internal Medicine | DX: Z12.4 Encounter for screening for malignant neoplasm of cervix (principal) | CPT/HCPCS: 88142 ==

== ENCOUNTER 2024-07-13 10:42 | Outpatient (REF) | payer OTHER, SELFPAY ==
[2024-07-13 10:44] LABS: MANUAL DIFF FLAG NO
[2024-07-13 10:57] LABS: Appearance Urine Clear; Color Urine Yellow; Glucose Urine UA Negative (Negative); Leukocyte Esterase Urine Negative (Negative); Nitrite Urine Negative (Negative); PH 6.5 (5.0-9.0); Urine Blood Negative (Negative); Urine Ketones Negative (Negative); Urine Protein Negative (Neg-Trace)
[2024-07-13 11:01] LABS: Bacteria Urine None Seen (None Seen); Basophils Percent Auto 0.7 % (0-2); Eosinophils Absolute Auto 0.1 X10*3/uL (0.0-0.4); Eosinophils Percent Auto 1.7 % (0-4); Hematocrit 37.2 % (37.0-47.0); Hemoglobin 12.4 g/dl (12.0-16.0); Hyaline Casts Urine 0-2 /LPF (0-2); Imm Gran Abs Auto 0.01 X10*3/uL (0.00-0.03); Imm Gran Pct Auto 0.2 % (0.0-0.4); Lymphocytes Absolute Auto 2.5 X10*3/uL (1.2-4.9); Lymphocytes Percent Auto 46.9 % (20-40); Mean Corpuscular HGB Conc 33.3 g/dl (31.0-35.0); Mean Corpuscular Hemoglobin 30.7 pg (27.0-33.0); Mean Corpuscular Volume 92.1 fL (80.0-98.0); Mean Platelet Volume 11.2 fL (9.4-12.3); Monocytes Absolute Auto 0.5 X10*3/uL (0.1-1.2); Monocytes Percent Auto 8.9 % (2-11); Neutrophils Absolute Auto 2.3 x10*3/uL (2.0-8.3); Neutrophils Percent Auto 41.6 % (45-73); Platelet Count 223 X10*3/uL (160-400); RBC Urine 0-2 /HPF (0-2); Red Blood Count 4.04 X10*6/uL (4.20-5.50); Red Cell Distribution Width 12.3 % (11.0-16.0); Squamous Epithelial Cell Urine 0-2 /HPF (0-2); WBC Urine 0-5 /HPF (0-5); White Blood Count 5.4 X10*3/uL (4.8-10.8)
[2024-07-13 11:28] LABS: Alanine Aminotransferase 17 U/L (0-31); Albumin Level 4.3 g/dL (3.5-5.0); Alkaline Phosphatase 47 U/L (39-117); Anion Gap 13 (12-20); Aspartate Amino Transferase 24 U/L (5-31); Bilirubin Total 0.4 mg/dL (0.0-1.0); Blood Urea Nitrogen 15 mg/dL (9-16); Calcium 9.4 mg/dL (8.4-10.2); Carbon Dioxide 28 mmol/L (22-29); Chloride 106 mmol/L (96-108); Cholesterol 234 mg/dL (<200); Estimated Glomerular Filt Rate > 60; Glucose Fasting 90 mg/dL (60-99); HDL Cholesterol 74 mg/dL (>40); LDL Cholesterol Calculated 143 mg/dL (<100); Potassium 3.9 mmol/L (3.3-5.1); Sodium 143 mmol/L (135-145); Total Protein 6.7 g/dL (6.5-8.0); Triglycerides 89 mg/dL (<150)
[2024-07-13 11:33] LABS: Vitamin D 25-OH Total 29.2 ng/mL (>30)
--- OUTSIDE RECORDS SUMMARY | 2024-07-13 12:42 | XMS_ITS ---
Author Organization Chu Marx MD Address [address] [place] [phone] Care Team Providers Care Control Clerk Head Name Role Phone Chu Marx Primary Care Provider REASON FOR VISIT Suspect Risk Code Encounters Encounter Location Date Provider Diagnosis Chu Marx MD [address] [facility] [address] [place] [address] [phone] 10/04/2023 Chu Marx Plan Of Treatment Next Appt Details Provider Name:Chu Sellers ier, 07/20/2024 08:30:00 AM, [address], [address], [place], [place], [id number], Progress Notes * Carla DICK SDOB:1960 (63 yo F)Acc No.[id number]:10/04/2023 Patient:?Carla Dick :1960???Age:63 Y???Sex:Female Address:[address], [place] [address] * true * Date:? Generated for Printi ng/Fagermaineg/eTransmitting on:?07/13/2024 12:41 PM EDT
--- OUTSIDE RECORDS SUMMARY | 2024-07-13 12:42 | XMS_ITS | Patient Health Record ---
Author Organization [facility] Address [address] [place] [phone] Care Team Providers Care Patient Care Manager Name Role Phone Francisco J BARGER, Chu Primary Care Provider Ovidio Giraldo Unavailable [phone] Allergies No Known Allergies Reason For Referral No Information Medications Medication SIG (Take, Route, Frequency, Duration) Notes Start Date End Date Status Albuterol Active Immunizations Vaccine Route Administration Date Status Comme nts Influenza Unknown 08/08/2021 Refused Social History Alcohol Screen Question Answer Notes Did you have a drink contain ing alcohol in the past year? Yes How often did you have a dri nk containing alcohol in the past year? 4 or more times a week (4 points) How many drinks did you have on a typical day when you were drinking in the past year? 1 or 2 drinks (0 point) How often did you have 6 or more drinks on one occasion in the past year? Never (0 point) Points 4 Interpretation Positive Section Notes: She does not smoke, and uses only occasional alcohol She does not smoke, and has 1-2 beers QPM Problems Problem Type SNOMED Code ICD Code Onset Dates Problem Status W/U Status Risk Notes Problem 209087349 Encounter for screening for malignant neoplasm of colon (Z12.11) Active confirmed Problem 650976200732968 Preprocedural examination (Z01.818) Active confirmed Problem Diverticulosis of colon (133899266) Diverticulosis of colon (K57.30) Active confirmed Plan Of Treatment Future Test Test Name Order Date COLONOSCOPY 02/18/2011 COLONOSCOPY 08/08/2021 Insurance Providers Payer Name Payer Address Payer Phone Subscriber Number Group Number Insured Name Patient Relationship to Insured Coverage Start Date Coverage End Date [facility] [address] [place] [phone] [id number] RAMÍREZ DICK Self - patient is the insured Medical (General) History Medical History History ICD Code Asthma Colonoscopy in 04/2011 was negative excep t for a hyperplastic polyp Denies [place],DM,CVA,renal disease Surgical History Surgery Date(Month/Year) CCY
--- OUTSIDE RECORDS SUMMARY | 2024-07-13 12:42 | XMS_ITS | Patient Health Record ---
Author Organization Chu Marx MD Address [address] [place], [place] [phone] Care Team Providers Care Anesthesiologist Name Role Phone Chu Marx Primary Care Provider Allergies Allergen (clinical drug ingredient) Drug/Non Drug Allergy documented on EMR Reaction Allergy Type Onset Date Status promethazine Phenergan itch Drug Allergy Acti ve ketorolac Ketorolac Tromethamine hives Drug Allergy Active ketorolac Taradol (uncoded) itch Allergy Ac tive Results Component Value Reference Range Notes Complete Blood Count Auto Di ff (Not yet reviewed by provider) Interpretation: Performing Lab:[facility], [address] [place] [phone] Notes/Report: White Blood Count 5.4 4.8-10.8 X10*3/uL Red Blood Count 4.04 4.20-5.50 X10*6/uL Hemoglobin 12.4 12.0-16.0 g/dl Hematocrit 37.2 37.0-47.0 % Mean Corpuscular Volume 92.1 80.0-98.0 fL Mean Corpuscular Hemoglobin 30.7 27.0-33.0 pg Mean Corpuscular HGB Conc 33.3 31.0-35.0 g/dl Red Cell Distribution Width 12.3 11.0-16.0 % Platelet Count 223 160-400 X10*3/uL Mean Platelet Volume 11.2 9.4-12.3 fL Neutrophils Percent Auto 41.6 45-73 % Imm Gran Pct Auto 0.2 0.0-0.4 % Lymphocytes Percent Auto 46.9 20-40 % Monocytes Percent Auto 8.9 2-11 % Eosinophils Percent Auto 1.7 0-4 % Basophils Percent Auto 0.7 0-2 % NRBC Pct Auto 0.0 0.0-0.2 /100WBC Neutrophils Absolute Auto 2.3 2.0-8.3 x10*3/uL Imm Gran Abs Auto 0.01 0.00-0.03 X10*3/uL Lymphocytes Absolute Auto 2.5 1.2-4.9 X10*3/uL Monocytes Absolute Auto 0.5 0.1-1.2 X10*3/uL Eosinophils Absolute Auto 0.1 0.0-0.4 X10*3/uL Basophils Absolute Auto 0.0 0.0-0.2 X10*3/uL NRBC Abs Auto 0.000 0.0-0.012 X10*3/uL Comprehensive [place]. Panel [facility] (Not yet reviewed by provider) Interpretation: Performing Lab:[facility], [address] [place] [phone] Notes/Report: Sodium 143 135-145 mmol/L Potassium 3.9 3.3-5.1 mmol/L Chloride 106 96-108 mmol/L Carbon Dioxide 28 22-29 mmol/L Anion Gap 13 12-20 Blood Urea Nitrogen 15 9-16 mg/dL Creatinine 0.75 0.5-1.4 mg/dL Estimated Glomerular Filt Rate > 60 Chronic Kidney Disease: Estimated GFR < 60 mL/min/1.73m2 Severe Kidney Disease: Estimated GFR < 15 mL/min/1.73m2 Glucose Fasting 90 60-99 mg/dL Calcium 9.4 8.4-10.2 mg/dL Bilirubin Total 0.4 0.0-1.0 mg/dL Aspartate Amino Transferase 24 5-31 U/L Alanine Aminotransferase 17 0-31 U/L Total Protein 6.7 6.5-8.0 g/dL Albumin Level 4.3 3.5-5.0 g/dL Alkaline Phosphatase 47 39-117 U/L Lipid Panel (Not yet reviewe d by provider) Interpretation: Performing Lab:[facility], [address] [place] [phone] Notes/Report: Triglycerides 89 <150 mg/dL Desirable Triglyceride: less than 150 mg/dL Borderline High Triglyceride 150-199 mg/dL High Triglyceride: 200-499 mg/dL Very High Triglyceride: greater than or equal to 5OO mg/dL Cholesterol 234 <200 mg/dL Desirable Cholesterol: less than 200 mg/dL Borderline High Cholesterol: 200-239 mg/dL High Cholesterol: greater than 239 mg/dL LDL Cholesterol Calculated 143 <100 mg/dL Desirable LDL: less than 100 mg/dL Near Optimal/Above Optimal LDL: 110-129 mg/dL Borderline High LDL: 130-159 mg/dL High LDL: 160-189 mg/dL Very High LDL: greater than or equal to 190 mg/dL HDL Cholesterol 74 >40 mg/dL Desirable HDL: greater than 40 mg/dL Note: This HDL assay may give artificially low results in patients with liver disease. Vitamin D 25-OH Total (Not y et reviewed by provider) Interpretation: Performing Lab:[address] [phone] Notes/Report: Vitamin D 25-OH Total 29.2 >30 ng/mL Health Based Reference Values* < 20 ng/mL Deficient 20-30 ng/mL Insufficient > 30 ng/mL Sufficient *Farideh MARIA. N Engl J Med. 2007;357:266-280 There is no well-established upper level of normal vitamin D levels. Some laboratories use 50 ng/mL as an upper limit of normal. However, toxicity is patient-dependent and may occur at any level. Careful correlation with the patient's presentation is necessary and, if there is concern for vitamin D toxicity, treatment should be considered irrespective of the serum level. Care must be taken in interpreting Vitamin D results from different laboratories and methodologies. Published data demonstrated that results from patients undergoing hemodialysis may show a negative bias when tested with various automated 25-OH vitamin D assays when compared to LC-MS/MS. When testing samples from patients whose predominant form of Vitamin D is Vitamin D2, such as patients receiving Vitamin D2 supplementation, results that are subtherapeutic should be confirmed with another method such as LC-MS/MS. UA ClnCatch+Micro w/rflx Cul t (Not yet reviewed by provider) Interpretation: Performing Lab:[facility], [address] [place] [phone] Notes/Report: Urine, Clean Catch Color Urine Yellow Appearance Urine Clear PH 6.5 5.0-9.0 Glucose Urine UA Negative Negative mg/dL Urine Blood Negative Negative Specific [place] - Urine 1.010 1.005-1.025 Urine Protein Negative Neg-Trace mg/dL Urine Ketones Negative Negative mg/dL Nitrite Urine Negative Negative Leukocyte Esterase Urine Negative Negative RBC Urine 0-2 0-2 /HPF WBC Urine 0-5 0-5 /HPF Squamous Epithelial Cell Urine 0-2 0-2 /HPF Bacteria Urine None Seen None Seen Hyaline Casts Urine 0-2 0-2 /LPF Occult Blood, Stool, Guaiac Reviewed date:07/20/2023 10:52:55 AM Interpretation:Negative Performing Lab: Notes/Report: Negative Occult Blood, Stool, Guaiac Neg Pap Smear Reviewed date:08/10/2023 08:26:53 AM Interpretation: Performing Lab:[facility], [address] [place] [phone] Notes/Report: --- Name: Carla Wayne Age/Sex: 63/F : 1960 Unit#: [id number] Attend Dr: Chu Marx MD Re07/20/23 Status : [facility] REF Location: [facility] Disch: --- SPEC : [id number] REC STATUS: ADAMARIS ODONNELL NUM: [id number] [place]: 07/20/[address] [facility] [address]: Chu Marx MD ENTERED: 07/21/23 SP TYPE: Pap Smr OT DR: ORDERED: Pap Smear Interpretation Satisfactory for evaluation. Atrophic. Negative for intraepithelial lesion or malignancy. Clinical Information LMP: Unknown date Previous PAP test: Unknown date/findings Material Received ThinPrep-Vaginal/Cer luis al --- Signed (signature on file) LONI Vega (ASCP) 08/10/23 0715 --- END OF REPORT MAMMOGRAM DIGITAL BILATERAL SCREEN Reviewed date:12/10/2023 01:21:59 PM Interpretation:Negative Performing Lab: Notes/Report: Negative Hold Gold (Not yet reviewed by provider) Interpretation: Performing Lab:[facility], [address] [place] [phone] Notes/Report: Hold Gold See Note Specimen held untested for 24 hours; Call to request Chemistry testing. Reason For Referral Reason subcutaneous nodule right knee Diagnosis 1 Subcutaneous nodule (R22.9) Referral Organization Chu Marx MD Referring Provider First Name Chu Referring Provider Last Name Francisco J Referring Provider Speciality Internal M edicine Referred Provider SERGIO LINDSAY Referred Provider Specialty Orthopedic S urgery General Notes Eleonora Shrestha 09:19:36 AM EDT > info faxed, referral info sent to patient she will be making her own appt all info mailed to patient, Eleonora Shrestha 08/23/2023 08:45:11 AM EDT > spoke with patient she asked us to make her appt , Eleonora Shrestha 08/23/2023 09:14:05 AM EDT > appt is with Lizeth Ramos info mailed to patient Referral Priority Routine Referral Appointment Date 09/20/2023 Medications Medication SIG (Take, Route, Frequency, Duration) Notes Start Date End Date Status Flunisolide 25 MCG/ACT (0.025%) 2 sprays in each nostril Nasally Twice a day for 90 Not-Taking valACYclovir HCl 1 GM TAKE 2 TABLETS BY MOUTH EVERY 12 HRS [id number] for 2 Active Albuterol Sulfate HFA 108 (90 Base) MCG/ACT 2 puffs as needed Inhalation every 4 hrs for 84 Not-Taking Immunizations Vaccine Route Administration Date Status Comme nts Flu Vaccine IM Intramuscular 12/16/2010 Administered DECLINED, FLU Unknown 04/06/2013 Administered Fluarix Quadrivalent Unknown 01/20/2020 Administered CV S PPSV23 (Pnemovax) IM Intramuscular 05/23/2020 Administered Covid Vaccine Unknown 06/29/2020 Administered Pfizer Covid Vaccine Unknown 07/22/2020 Administered Pfizer SARS-COV-2 Pfizer Unknown 04/12/2021 Administered SARS-COV-2 Pfizer Unknown 04/12/2021 Administered Flu Vaccine Unknown 04/10/2014 Refused PPSV23 (Pnemovax) Unknown 04/20/2014 Refused Flu Vaccine Unknown 01/21/2015 Refused Fluarix Quadrivalent Unknown 05/12/2016 Refused Fluarix Quadrivalent Unknown 03/20/2019 Refused Fluarix Quadrivalent Unknown 06/05/2021 Refused Social History Tobacco Use: Social History Observation Description Date Details (start date - stop date) Former Smoker NA - NA Tobacco Use/Smoking Question Answer Notes Patient is a former smoker Alcohol Screen Question Answer Notes Did you have a drink contain ing alcohol in the past year? Yes How often did you have a dri nk containing alcohol in the past year? Monthly or less (1 point) How many drinks did you have on a typical day when you were drinking in the past year? 1 or 2 drinks (0 point) How often did you have 6 or more drinks on one occasion in the past year? Never (0 point) Points 1 Interpretation Negative Problems Problem Type SNOMED Code ICD Code Onset Dates Problem Status W/U Status Risk Notes Problem 22955770 Lymphocytosis (D72.820) Active confirmed Problem 30456078 Vitamin D deficiency (E55.9) Active confirmed Problem 628251936 Mild intermitten t asthma without complication (J45.20) Active confirmed Problem 4199567 Cold sore (B00.1) Active confirmed Problem 551521507 Hyperplastic col on polyp (K63.5) Active confirmed Problem 05654633 Aortic valve insufficiency, unspecified etiology (I35.1) Active confirmed Problem 99181345 Rhinitis, unspecified type (J31.0) Active confirmed Problem 201024703 Hypesthesia (R20.1) Active confirmed Vital Signs Blood pressure diastolic 60 mm Hg 07/20/2023 barbara ght is up 4 pounds since 07-14-22 Height 63.25 in 07/20/2023 weight is up 4 pounds since 07-14-22 Blood pressure systolic 102 mm Hg 07/20/2023 weig ht is up 4 pounds since 07-14-22 Weight 129 lbs 07/20/2023 weight is up 4 pounds since 07-14-22 BMI 22.67 kg/m2 07/20/2023 weight is up 4 pounds since 07-14-22 Encounters Encounter Location Date Provider Diagnosis Chu Marx MD [address] [place] [address] [address] [place] [phone] 07/13/2024 Chu Marx Blood tests for routine general physical examination Z00.00 ; Vitamin D deficiency E55.9 and Lymphocytosis D72.820 Chu Marx MD [address] [place] [address] [address] [place] [phone] 07/20/2023 Chu Marx Subcutaneous nodule R22.9 ; Annual physical exam Z00.00 ; Cervical cancer screening Z12.4 ; Vitamin D deficiency E55.9 ; Depression screening Z13.31 and Colon cancer screening Z12.11 Chu Marx MD [address] [place] [address] [address] [place] [phone] 10/12/2023 Chu Marx MD [address] [place] [address] [address] [place] [phone] 10/04/2023 Chu Marx Assessments Encounter Date Diagnosis (ICD Code) Assessment Notes Treatment Notes Treatment Clinical Notes Section Notes 07/13/2024 Blood tests for routine general physical examination (ICD-10 - Z00.00) 07/20/2023 Subcutaneous nodule (ICD-10 - R22.9) referral to ortho [facility] 07/20/2023 Annual physical exam (ICD-10 - Z00.00) labs reviewed and discussed with patient 07/13/2024 Vitamin D deficiency (ICD-10 - E55.9) 07/20/2023 Cervical cancer screening (ICD-10 - Z12.4) 07/13/2024 Lymphocytosis (ICD-10 - D72.820) 07/20/2023 Vitamin D deficiency (ICD-10 - E55.9) stable, will cntinue to monitor 07/20/2023 Depression screening (ICD-10 - Z13.31) negative screen 07/20/2023 Colon cancer screening (ICD-10 - Z12.11) guaiac negative Plan Of Treatment Pending Test Test Name Order Date MRI SHOULDER LT W&WO CONTRAST 04/17/2021 US EXTREMITY SOFT TISSUE NON-VASC 2021 ECHO 04/06/2013 Complete Blood Count Auto Diff Comprehensive [place]. Panel Fast 5 Lipid Panel 07/13/2024 Vitamin D 25-OH Total 07/13/2024 Hold Gold 07/13/2024 CT shoulder LT wo con 04/10/2021 UA ClnCatch+Micro w/rflx Cult 07/13/2024 Next Appt Details Provider Name:Chu zuniga, 07/20/2024 08:30:00 AM, [address] [place] [address], [address], [place], [place], [phone], Insurance Providers Payer Name Payer Address Payer Phone Subscriber Number Group Number Insured Name Patient Relationship to Insured Coverage Start Date Coverage End Date [address] [place] [phone] [id number] Carla Wayne Self - patient is the insured Medical (General) History Medical History History ICD Code 02/16/12 - refused flu shot colonoscopy 2011 due in 10: Colonoscopy 09/12/21 repeat 10 years
--- OUTSIDE RECORDS SUMMARY | 2024-07-13 12:42 | XMS_ITS | Clinical Summary ---
Author Organization [facility] it Address [address] [place] [address] Care Team Providers Care Inspector [employer] Name Role Phone Unavailable Primary Care Provider Unavailabl e Social History Tobacco Use Types Packs/Day Years Used Date Smoking Tobacco: Never Assessed Comments Unknown Sex and Gender Information Value Date Recorded Sex Assigned at Not on file Legal Sex Female 2:17 PM EST Gender Identity Not on file Sexual Orientation Not on file Plan of Treatment Health Maintenance Due Date Last Done Comments DTaP,Tdap,and Td Vaccines (1 - Tdap) 1979 Cervical Cancer Screening: Pap Smear 1981 Pneumococcal Vaccine: 50+ Years (1 of 1 - PCV) 2010 Zoster Vaccines (1 of 2) 2010 Colorectal Cancer Screening: Colonoscopy 03/04/2022 Depression Screening 03/04/2022 HIV Screening 03/04/2022 Hepatitis C Screening 03/04/2022 Social Influencers of Health Screening 03/04/2022 COVID-19 Vaccine ( - season) 2023 Influenza Vaccine (Season Ended) 2024 Breast Cancer Screening 12/07/2025 12/08/19 24, 10/14/2022, 05/19/2021, Additional history exists RSV Immunization Adult Patients (1 - 1-dose 75+ series) 2035 HIB Vaccines Aged Out No longer eligi ble based on patient's age to complete this topic HPV Vaccines Aged Out No longer eligi ble based on patient's age to complete this topic Hepatitis A Vaccines Aged Out No long er eligible based on patient's age to complete this topic Hepatitis B Vaccines Aged Out No long er eligible based on patient's age to complete this topic IPV Vaccines Aged Out No longer eligi ble based on patient's age to complete this topic MMR Vaccines Aged Out No longer eligi ble based on patient's age to complete this topic Meningococcal ACWY Vaccine Aged Out N o longer eligible based on patient's age to complete this topic Meningococcal B Vaccine Aged Out No l onger eligible based on patient's age to complete this topic Pneumococcal Vaccine: Pediatrics (0 to 5 Years) and At-Risk Patients (6 to 64 Years) Aged Out No longer eligible based on patient's age to complete this topic RSV Immunization Patients Under 20 months Aged Out No longer eligible based on patient's age to complete this topic Varicella Vaccines Aged Out No longer eligible based on patient's age to complete this topic Procedures Procedure Name Priority Date/Time Associated Diagnosis Comments [facility] SCREENING [facility]IGITAL Routine 12/08/2023 5:24 PM EDT Encounter for screening mammogram for malignant neoplasm of breast from Last 3 Months or Most Recently Relevant to Health Maintenance Results * [facility] SCRE[facility] (12/08/2023 5:24 PM EDT) Anatomical Region Laterality Modality Mammography 12/08/2023 2:06 PM EDT Narrative 12/08/2023 5:24 PM EDT [facility] Diagnostic Imaging Department [address] [place] [address] Patient: ??CARLA DICK ?/Age/Sex: 1960 63 - F Unit#: ??[id number] ? Location/Status: ??SPDIMAM/REG CLI ? Mnemonic/Ordering Site: ??DIGSC/SPMAM Ordering Physician: ??CHU DORSEY MD [facility] Screening Digital - 12/08/23 - 1437 Report Status:Signed EXAM: [facility] Screening Digital EXAM DATE AND TIME: 12/08/2023 2:37 PM HISTORY: ??Screening. Left breast biopsy in 2004, pathology benign. COMPARISON: ??10/13/22, 05/19/21, 05/14/20 TECHNIQUE: Bilateral digital breast tomosynthesis was performed in the CC and MLO projections. Computer aided detection with [employer] 3D 3.1 was employed. TISSUE DENSITY: c. The breasts are heterogeneously dense, which may obscure small masses. FINDINGS: No suspicious masses, grouped microcalcifications, or areas of architectural distortion are seen. Few benign rim calcifications are noted. Vascular calcification is present. The skin is unremarkable. IMPRESSION: Stable mammographic appearance of the breasts. ??No evidence of malignancy is seen. A negative mammogram in the presence of a clinically suspicious palpable abnormality does not preclude the possibility of malignancy or alter the indications for biopsy. BI-RADS: ??Category 2: Benign RECOMMENDATION(S): 1: Routine screening mammogram BILATERAL in 1 year. Dictating Physician: ??GHADA YUNG MD Electronically Signed by: ??GHADA YUNG MD Dic Date/Time: ??12/08/231723 Sign date/Time: ??12/08/231723 Procedure Note Ghada Yung MD - 01/19/2024 [facility] Diagnostic Imaging Department [address] [place] [address] Patient: CARLA DICK Osito Moreau/Age/Sex: 1960 - 63 - F Unit#: [id number] [facility]/Ordering Site: DIGSC/SPMAM Ordering Physician: CHU DORSEY MD [facility] Screening Digital - 12/08/23 - 1437 Report Status:Signed EXAM: [facility] Screening Digital EXAM DATE AND TIME: 12/08/2023 2:37 PM HISTORY: Screening. Left breast biopsy in 2004, pathology benign. COMPARISON: 10/13/22, 05/19/21, 05/14/20 TECHNIQUE: Bilateral digital breast tomosynthesis was performed in the CCand MLO projections. Computer aided detection with [employer] 3D 3.1was employed. TISSUE DENSITY: c. The breasts are heterogeneously dense, which mayobscure small masses. FINDINGS: No suspicious masses, grouped microcalcifications, or areas ofarchitectural distortion are seen. Few benign rim calcifications are noted. Vascular calcification is present. The skin is unremarkable. IMPRESSION: Stable mammographic appearance of the breasts. No evidence of malignancyis seen. A negative mammogram in the presence of a clinically suspicious palpable abnormality does not preclude the possibility of malignancy or alter the indications for biopsy. BI-RADS: Category 2: Benign RECOMMENDATION(S): 1: Routine screening mammogram BILATERAL in 1 year. Dictating Physician: GHADA YUNG MD Electronically Signed by: GHADA YUNG MD Dic Date/Time: 12/08/231723 Sign date/Time: 12/08/231723 us Chu Dorsey MD IMG BI PROCEDURES Final Res ult from Last 3 Months or Most Recently Relevant to Health Maintenance
--- OUTSIDE RECORDS SUMMARY | 2024-07-13 12:42 | XMS_ITS ---
Author Organization Chu Marx MD Address [address] [place], [place] [id number] Care Team Providers Care Vinyl Installer Name Role Phone Chu Marx Primary Care Provider Results Component Value Reference Range Notes Complete Blood Count Auto Di ff (Not yet reviewed by provider) Interpretation: Performing Lab:[facility], [address] [place] [phone] Notes/Report: White Blood Count 5.4 4.8-10.8 X10*3/uL [...] 0.0-0.2 /100WBC Neutrophils Absolute Auto 2.3 2.0-8.3 x10*3/u L Imm Gran Abs Auto 0.01 0.00-0.03 X10*3/uL Lymphocytes Absolute Auto 2.5 1.2-4.9 X10*3/u L Monocytes Absolute Auto 0.5 0.1-1.2 X10*3/uL Eosinophils Absolute Auto 0.1 0.0-0.4 X10*3/u L Basophils Absolute Auto 0.0 0.0-0.2 X10*3/uL NRBC Abs Auto 0.000 0.0-0.012 X10*3/uL Comprehensive Melvin. Panel Fa st (Not yet reviewed by provider) Interpretation: Performing Lab:[facility], [address] [place] [phone] Notes/Report: Sodium 143 135-145 mmol/L Potassium 3.9 [...] yet reviewe d by provider) Interpretation: Performing Lab:[facility], [address] [place] [phone] Notes/Report: Triglycerides 89 <150 mg/dL Desirable Triglyceride: [...] y et reviewed by provider) Interpretation: Performing Lab:[address] [phone] Notes/Report: Vitamin D 25-OH Total 29.2 >30 [...] (Not yet reviewed by provider) Interpretation: Performing Lab:[address] [phone] Notes/Report: Urine, Clean Catch Color Urine Yellow Appearance Urine Clear PH 6.5 5.0-9.0 Glucose Urine UA Negative Negative mg/dL Urine Blood Negative Negative Specific [place] - Urine 1.010 1.005-1.025 Urine Protein Negative Neg-Trace mg/dL Urine Ketones Negative Negative mg/dL Nitrite Urine Negative Negative Leukocyte Esterase Urine Negative Negative RBC Urine 0-2 0-2 /HPF WBC Urine 0-5 0-5 /HPF Squamous Epithelial Cell Urine 0-2 0-2 /HPF Bacteria Urine None Seen None Seen Hyaline Casts Urine 0-2 0-2 /LPF REASON FOR VISIT yearly fasting labs Encounters Encounter Location Date Provider Diagnosis Chu Marx MD [address] [place], [place] [phone] 07/13/2024 Chu Marx Blood tests for routine general physical examination Z00.00 ; Vitamin D deficiency E55.9 and Lymphocytosis D72.820 Assessments Encounter Date Diagnosis (ICD Code) Assessment Notes Treatment Notes Treatment Clinical Notes Section Notes 07/13/2024 Blood tests for routine general physical examination (ICD-10 - Z00.00) 07/13/2024 Vitamin D deficiency (ICD-10 - E55.9) 07/13/2024 Lymphocytosis (ICD-10 - D72.820) Plan Of Treatment Pending Test Test Name Order Date Complete Blood Count Auto Diff 5 Comprehensive Melvin. Panel Fast 5 Lipid Panel 07/13/2024 Vitamin D 25-OH Total 07/13/2024 UA ClnCatch+Micro w/rflx Cult 07/13/2024 Next Appt Details Provider Name:Chu Sellers ier, 07/20/2024 08:30:00 AM, [address], [address], [place], [place], [phone], Progress Notes * Carla WAYNE SDOB:1960 (64 yo F)Acc No.[id number]:07/13/2024 Progress Note Patient:?Carla WAYNE S Provider:?Chu Marx MD :1960???Age:64 Y???Sex:Female D ate:07/13/2024 Address:[address] [place] [address] [facility] Subjective: * Chief Complaints: * ???1. Yearly fasting labs. * Medical History:? Objective: * Vitals:? Assessment: * Assessment: 1.?Blood tests for routine g eneral physical examination - Z00.00 (Primary)???2.?Vitamin D deficiency - E55.9???3.?Lymphocytosis - D72.820??? Plan: * Treatment: 2.?Vitamin D deficiency?LAB: Complete Blood Count Auto Diff (Collection Date & Time - 07/13/2024 07:15 AM) ?LAB: Comprehensive Melvin. Panel Fast (Collection Date & Time - 07/13/2024 07:15 AM) ?LAB: Lipid Panel (Collection Date & Time - 07/13/2024 07:15 AM) ?LAB: Vitamin D 25-OH Total (Collection Date & Time - 07/13/2024 07:15 AM) ?LAB: UA ClnCatch+Micro w/rflx Cult (Collection Date & Time - 07/13/2024 07:15 AM) 3.?Lymphocytosis?LAB: Complete Blood Count Auto Diff (Collection Date & Time - 07/13/2024 07:15 AM) ?LAB: Comprehensive Melvin. Panel Fast (Collection Date & Time - 07/13/2024 07:15 AM) ?LAB: Lipid Panel (Collection Date & Time - 07/13/2024 07:15 AM) ?LAB: Vitamin D 25-OH Total (Collection Date & Time - 07/13/2024 07:15 AM) ?LAB: UA ClnCatch+Micro w/rflx Cult (Collection Date & Time - 07/13/2024 07:15 AM) * Procedure Codes:?74854 VENIP UNCT, ROUTINE* * * The named appointment provid er may or may not be the originator of this progress note, and it is not deemed complete until electronically signed by the appointment provider. Sign off status: Pending * Provider:?Chu Marx MD Date:?0 07/13/2024 Generated for Carlitai mark/Halie/eTransmitting on:?07/13/2024 12:42 PM EDT
--- OUTSIDE RECORDS SUMMARY | 2024-07-13 12:42 | XMS_ITS ---
Author Organization Chu Marx MD Address [address] [place] [phone] Care Team Providers Care Senior Hydrogeologist Name Role Phone Chu Marx Primary Care Provider REASON FOR VISIT asthma dx Encounters Encounter Location Date Provider Diagnosis Chu Marx MD [address] [facility] [address] [place] [phone] 10/12/2023 Chu Marx Plan Of Treatment Next Appt Details Provider Name:Chu Sellers ier, 07/20/2024 08:30:00 AM, [address], [address], [place], [place], [phone], Progress Notes * Carla DICK SDOB:1960 (64 yo F)Acc No.[id number]:10/12/2023 Patient:?Carla DICK :1960???Age:63 Y???Sex:Female Address:[address], [place] [address] * * Date:?
== END 2024-07-13 10:43 | disposition home or self-care (01) ==
LOC: HO.LNP 10:42
PROVIDERS: Visit Provider Internal Medicine
DX: Z00.00 Encounter for general adult medical examination without abnormal findings (principal); E55.9 Vitamin D deficiency, unspecified; D72.820 Lymphocytosis (symptomatic); Z13.6 Encounter for screening for cardiovascular disorders
CPT/HCPCS: 80053; 80061; 81001; 82306; 85025

== ENCOUNTER 2024-11-12 20:51 | Emergency (ER) | payer BC, SELFPAY ==
[2024-11-12 21:00] VITALS: BP 174/83; PULSE 62; RESP 20; TEMP 36.7; O2SAT 98; BMI 23.5
--- NOTE | 2024-11-12 21:07 | ECG_ITS ---
Test Reason : HTN Blood Pressure : */* mmHG Vent. Rate : 55 BPM Atrial Rate : 55 BPM P-R Int : 174 ms QRS Dur : 80 ms QT Int : 426 ms P-R-T Axes : 58 34 33 degrees QTcB Int : 407 ms Sinus bradycardia Otherwise normal ECG When compared with ECG of 16-Jun-2020 21:12, Premature ventricular complexes are no longer Present QT has shortened Referred By: Generic ED Physician Electronically Signed By: Kamran Tyson
[2024-11-12 21:22] LABS: Hematocrit 34.7 % (37.0-47.0); Hemoglobin 11.9 g/dl (12.0-16.0); Imm Gran Abs Auto 0.01 X10*3/uL (0.00-0.03); Imm Gran Pct Auto 0.1 % (0.0-0.4); Lymphocytes Absolute Auto 3.1 X10*3/uL (1.2-4.9); MANUAL DIFF FLAG NO; Mean Corpuscular HGB Conc 34.3 g/dl (31.0-35.0); Mean Corpuscular Hemoglobin 31.0 pg (27.0-33.0); Mean Corpuscular Volume 90.4 fL (80.0-98.0); NRBC Abs Auto 0.000 X10*3/uL (0.0-0.012); NRBC Pct Auto 0.0 /100WBC (0.0-0.2); Platelet Count 203 X10*3/uL (160-400); Red Blood Count 3.84 X10*6/uL (4.20-5.50); White Blood Count 7.0 X10*3/uL (4.8-10.8)
[2024-11-12 21:37] LABS: Alanine Aminotransferase 19 U/L (0-31); Albumin Level 4.3 g/dL (3.5-5.0); Alkaline Phosphatase 54 U/L (39-117); Anion Gap 13 (12-20); Aspartate Amino Transferase 25 U/L (5-31); Blood Urea Nitrogen 27 mg/dL (9-16); Calcium 8.8 mg/dL (8.4-10.2); Carbon Dioxide 22 mmol/L (22-29); Chloride 109 mmol/L (96-108); Creatinine Clr Calc Pharmacy 56.6; Estimated Glomerular Filt Rate > 60; Lipase 48 U/L (8-78); Potassium 3.9 mmol/L (3.3-5.1); Sodium 140 mmol/L (135-145); Total Protein 6.7 g/dL (6.5-8.0)
--- NOTE | 2024-11-13 03:18 | ED_ITS ---
HPI - Eye Problem General Chief complaint: Eye Problems Stated complaint: right eye sore, has pain behind jewish, runny eye Time Seen by Provider: 11/13/24 03:17 Source: patient Mode of arrival: ambulatory Limitations: no limitations History of Present Illness ED Provider: Nile RICHEY HPI Narrative: The patient is a 64-year-old female presenting to the ED for evaluation of irritation and scratching/pruritic sensation of the right eye which began yesterday, with increasing swelling and pain behind the eye today. The patient reports she attempted allergy medication without significant relief. Patient reports the eye began tearing this evening prompting ED evaluation. Patient denies any visual field loss, dropping current sensation, double vision, headache, sensitivity to light touch of the jewish, recent trauma, or foreign body sensation. The patient wears reading glasses but does not use other corrective lenses. Patient reports a family history of glaucoma but denies personal history. Related Data Previous Rx's ?Medication ?Instructions ?Recorded acetaminophen 500 mg capsule 1,000 mg (2 x 500 mg) PO .q8 PRN 11/13/24 fever or pain #30 caps ibuprofen 600 mg tablet 600 mg PO Q8H PRN fever or p ain 11/13/24 #30 tabs loteprednol etabonate 0.2 % eye 1 drp ophthalmic-Right QID #5 mL 11/13/24 drops,suspension Allergies Allergy/AdvReac Type Severity Reaction Status Date / Time ketorolac (From Toradol) AdvReac Unknown Unknown Verified 11/12/24 21:05 promethazine (From Phenergan) AdvReac Unknown unk Verified 11/12/24 21:05 Review of Systems 2 Review of Systems: Yes all other systems are reviewed and are negative [facility] Past Medical History Medical History (Updated 11/13/24 @ 04:30 by Nile Rahman PA-C) Asthma Surgical History (Updated 09/16/21 @ 14:41 by EDIN Buenrostro) Hx of colonoscopy History of cholecystectomy Family History Family History (Updated 09/16/21 @ 14:42 by EDIN Buenrostro) Mother No problems noted. Father Hypertension Paternal Grandmother Stroke Paternal Grandfather Stroke Social History Social History (Updated 09/16/21 @ 14:41 by EDIN Buenrostro) Alcohol intake: current Alcohol intake frequency: 0-2 drinks per day Alcohol type: wine Patient Tobacco Use Status: Former Tobacco user Years Smoked: 5-6 (teen years) Substance Use Type: Marijuana Advance Directives: No Advance Directives Information Provided: No Do you have a plan to hurt others: No Plan Physical Exam 2 Vital Signs: Vital Signs: Last Vital Signs Temp 98.1 F 11/12/24 21:00 Pulse 62 11/12/24 21:00 Resp 20 11/12/24 21:00 BP 174/83 H 11/12/24 21:00 Pulse Ox 98 11/12/24 21:00 O2 Del Method Room Air 11/12/24 21:00 BMI result Body Mass Index 23.5 CONSTITUTIONAL: The patient appears non-toxic, well nourished and in no acute distress. Vital signs as documented. HEAD: Atraumatic, normocephalic. EYES: EOMs are intact, patient reports some painful EOMs when looking up and right, pupils equal, round, and reactive to light and accommodation, mild conjunctival injection and tearing on the right, no subconjunctival hemorrhage, no hyphema, no purulent exudate. Intra-ocular pressures are 22 on the left eye and 18 on the affected right eye. There is no evidence of visual field loss. No corneal abrasion or foreign body. ENT: Nares patent, no discharge. Airway patent, no audible stridor, visible mucosa is pink and moist without noted lesions. NECK: trachea is midline, no obvious masses or gross abnormalities. CHEST: Symmetric movement, normal appearance. LUNGS: Non-labored work of breathing. CARDIAC: No evidence of hypoperfusion. ABDOMEN: Nondistended, no obvious injury. : Deferred. EXTREMITIES: Moves all extremities spontaneously without reported pain. No obvious injury or deformity noted. NEURO: Alert and oriented x3, CN II-XII appear grossly intact. Cerebellar Functioning grossly intact. Speech clear and appropriate. SKIN: Warm, dry, color appropriate. No rashes or lesions noted. Medical Decision Making Medical Decision Making MDM Narrative: 4:14 AM 11/13/2024 (Gaston RICHEY): The patient is a 64-year-old female presenting to the ED for evaluation of irritation and scratching/pruritic sensation of the right eye which began yesterday, with increasing swelling and pain behind the eye today. The patient reports she attempted allergy medication without significant relief. Patient reports the eye began tearing this evening prompting ED evaluation. Patient denies any visual field loss, dropping current sensation, double vision, headache, sensitivity to light touch of the jewish, recent trauma, or foreign body sensation. The patient wears reading glasses but does not use other corrective lenses. Visual acuity 20/70 on the left, 20/50 on the right. Patient reports a family history of glaucoma but denies personal history. The patient's examination shows a mild conjunctival injection of the right eye with fully intact, but subjectively painful EOMs when looking up and right, there is minimal eyelid edema without significant erythema, no tenderness to light or deep palpation of the surrounding orbit, no findings consistent with orbital or preseptal orbital cellulitis. IOPs are equal and normal bilaterally, fluorescein staining does not reveal any corneal foreign body or abrasion. Negative Chip sign. The exact cause of the patient's symptoms is not entirely clear, however there is no evidence of acute ocular emergency. Patient will be treated with hydrocortisone eyedrops and discharged to follow up with PCP for ophthalmology referral as indicated. Lab Data MDM Lab Attestation statement: I reviewed the patient's lab results. 11/12/24 21:17 11/12/24 21:17 Labs: Lab Results 11/12/24 Range/Units 21:17 WBC 7.0 (4.8-10.8) X10*3/uL RBC 3.84 L (4.20-5.50) X10*6/uL Hgb 11.9 L (12.0-16.0) g/dl Hct 34.7 L (37.0-47.0) % MCV 90.4 (80.0-98.0) fL MCH 31.0 (27.0-33.0) pg MCHC 34.3 (31.0-35.0) g/dl RDW 12.2 (11.0-16.0) % Plt Count 203 (160-400) X10*3/uL MPV 10.5 (9.4-12.3) fL Immature Gran % (Auto) 0.1 (0.0-0.4) % Neut % (Auto) 45.8 (45-73) % Lymph % (Auto) 44.1 H (20-40) % [place] % (Auto) 7.1 (2-11) % Eos % (Auto) 2.3 (0-4) % Baso % (Auto) 0.6 (0-2) % Lymph # (Auto) 3.1 (1.2-4.9) X10*3/uL [place] # (Auto) 0.5 (0.1-1.2) X10*3/uL Eos # (Auto) 0.2 (0.0-0.4) X10*3/uL Baso # (Auto) 0.0 (0.0-0.2) X10*3/uL Abs Immat Gran (auto) 0.01 (0.00-0.03) X10*3/uL Absolute Neuts (auto) 3.2 (2.0-8.3) x10*3/uL Absolute Nucleated RBC 0.000 (0.0-0.012) X10*3/uL Nucleated RBC % (auto) 0.0 (0.0-0.2) /100WBC Sodium 140 (135-145) mmol/L Potassium 3.9 (3.3-5.1) mmol/L Chloride 109 H (96-108) mmol/L Carbon Dioxide 22 (22-29) mmol/L Anion Gap 13 (12-20) BUN 27 H (9-16) mg/dL Creatinine 0.83 (0.5-1.4) mg/dL Estim Creat Clear Calc 56.6 Estimated GFR > 60 Random Glucose 102 (60-115) mg/dL Calcium 8.8 D (8.4-10.2) mg/dL Total Bilirubin 0.2 (0.0-1.0) mg/dL Direct Bilirubin < 0.2 (0.0-0.5) mg/dL AST 25 (5-31) U/L ALT 19 (0-31) U/L Alkaline Phosphatase 54 (39-117) U/L Total Protein 6.7 (6.5-8.0) g/dL Albumin 4.3 (3.5-5.0) g/dL Lipase 48 (8-78) U/L Discharge Plan Discharge Clinical Impression: Allergic conjunctivitis Qualifiers: Laterality: right Qualified Code(s): H10.11 - Acute atopic conjunctivitis, right eye Patient Disposition: Home, Self-Care Instructions: How to Use Eye Drops (ED), Conjunctivitis (ED) Additional Instructions: Thank you for choosing [facility]'s Emergency Department for your care today. Thankfully your exam and laboratory evaluation today shows no evidence of an emergent or dangerous cause for your eye discomfort. There is no evidence of retinal detachment, acute angle closure glaucoma, bacterial conjunctivitis, corneal foreign body, corneal abrasion, globe injury, periorbital cellulitis, orbital cellulitis or a stye. At this time there is no indication for admission to the hospital or continued ED observation, and it is safe to discharge you home. Your symptoms are most consistent with allergic conjunctivitis. Please apply steroid drops as prescribed to relieve your itching and inflammation. You may take alternating (staggered) doses of ibuprofen 600mg and Tylenol 1000mg every 4 hours as needed for any additional pain. You may apply cool compresses to your eyes for additional relief as needed. Please follow up with your primary care physician for re-evaluation, referral to Ophthalmology as indicated, additional management of your symptoms, and continued preventative care. If you do not have a primary care physician, please call the [facility] at [phone] to establish a new primary care physician. While waiting to establish your new primary care physician, you can call our Walk-in Care [facility] at [phone] for non-emergency needs. Please return to the emergency department if you develop a severe or sudden change in your symptoms, any vision loss, a fever over 100.4 that does not improve with Tylenol or Ibuprofen, recurrent vomiting, or any other new or worsening symptoms or concerns. Prescriptions: New acetaminophen 500 mg capsule 1,000 mg PO .q8 PRN (Reason: fever or pain) Qty: 30 0RF ibuprofen 600 mg tablet 600 mg PO Q8H PRN (Reason: fever or pain) Qty: 30 0RF loteprednol etabonate 0.2 % drops,suspension 1 drp ophthalmic-Right QID Qty: 5 0RF Referrals: Chu Marx MD [Primary Care Provider, Medical] Clinical Impression: Allergic conjunctivitis Print Language: [place]
[2024-11-13 04:50] VITALS: BP 160/81; PULSE 56; RESP 16; TEMP 36.6; O2SAT 99
[2024-11-13] MEDS: Tetracaine HCl 0.5% Oph Sol 5 ML DROPS 3 DROP EYE-BOTH (04:57)
[2024-11-13 05:06] VITALS: BP 160/81; PULSE 56; RESP 16; TEMP 36.6; O2SAT 99
== END 2024-11-13 05:06 | disposition home or self-care (01) ==
PROVIDERS: Emergency Provider Emergency Medicine; PCP Internal Medicine
DX: H10.11 Acute atopic conjunctivitis, right eye (principal); H57.11 Ocular pain, right eye; Z79.899 Other long term (current) drug therapy
CPT/HCPCS: 36415; 80048; 80076; 83690; 85025; 93005; 99283; 99284

== ENCOUNTER → 2024-11-12 21:07 | Outpatient (BNV) | payer BC, SELFPAY | PROVIDERS: Emergency Provider Emergency Medicine; PCP Internal Medicine; Visit Provider Internal Medicine Cardiovascular Disease | DX: R00.1 Bradycardia, unspecified (principal) | CPT/HCPCS: 93010 ==

== ENCOUNTER 2024-11-20 10:07 | Outpatient (REF) | payer BC, SELFPAY ==
[2024-11-20 10:39] LABS: Blood Urea Nitrogen 17 mg/dL (9-16)
== END 2024-11-20 10:08 | disposition home or self-care (01) ==
LOC: HO.LNP 10:07
PROVIDERS: Visit Provider Internal Medicine
DX: R79.9 Abnormal finding of blood chemistry, unspecified (principal)
CPT/HCPCS: 84520